=== PATIENT | female | born 1965 | race Two or more races ===

== ENCOUNTER → 2020-01-22 | Outpatient (CLI) | payer BC ==
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
== END | disposition home or self-care (01) ==
LOC: KCIC MRI 15:21
PROVIDERS: ATTEND Family Medicine
DX: M19.011 Primary osteoarthritis, right shoulder (principal)
CPT/HCPCS: 73221

== ENCOUNTER → 2021-03-03 | Outpatient (CLI) | payer BC ==
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
== END ==
LOC: KCIC MRI 13:36
PROVIDERS: ATTEND Physician Assistant
DX: M19.011 Primary osteoarthritis, right shoulder (principal); M75.41 Impingement syndrome of right shoulder; M75.21 Bicipital tendinitis, right shoulder; M25.111 Fistula, right shoulder; M25.811 Other specified joint disorders, right shoulder
CPT/HCPCS: 73221